=== PATIENT | male | born 1955 | race Caucasian/White ===

== ENCOUNTER 2019-07-13 06:01 | Day surgery (SDC) | payer OTHER ==
[2019-07-12 10:02] LABS: Basophils % 2.3 % (0-1.3); Hematocrit 41.5 % (39.6-49.0); MPV 9.7 fL (7.6-11.3); RBC Red Blood Cell Count 4.63 M/uL (4.33-5.43)
[2019-07-12 10:23] LABS: Potassium 4.3 mmol/L (3.5-5.1)
--- NOTE | 2019-07-12 14:32 | EKG ---
Test Date: 2019-07-12 Test Time: 09:55:21 Production Welding Supervisor: PADMA MEASUREMENT RESULTS: Intervals: Rate: 63 MI: 170 QRSD: 80 QT: 398 QTc: 407 Golden: P: 56 MI: 170 QRS: -4 T: 21 INTERPRETIVE STATEMENTS: Sinus rhythm with sinus arrhythmia with occasional premature ventricular complexes Otherwise normal ECG Compared to ECG 03/06/2007 07:48:06 Ventricular premature complex(es) now present Sinus bradycardia no longer present Electronically Signed On 07-12-19 14:30:06 RECEPTION AGENT by Davy Carnes
[2019-07-13] MEDS ORDERED: Ringers Lactate 1,000 ML IV ONE (06:04)
[2019-07-13] MEDS ORDERED: CLINDAMYCIN 900MG/D5W 900 MG/50 ML IVPB IV ONE (06:04)
[2019-07-13] MEDS ORDERED: BUPIVACA 0.5%/EPI 0.0005%/PF 30 ML VIAL ONE (06:26)
[2019-07-13] MEDS ORDERED: LIDOCAINE 1% MPF 5 ML VIAL ONE (06:50)
[2019-07-13] MEDS ORDERED: MIDAZOLAM HCL 2 MG/2 ML INJ ONE (06:50)
[2019-07-13] MEDS ORDERED: FENTANYL CITR 100 MCG/2 ML ONE (06:50)
[2019-07-13] MEDS ORDERED: PROPOFOL 200 MG/20 ML VIAL IV ONE (06:50)
[2019-07-13] MEDS ORDERED: KETOROLAC 30 MG/ML INJ ONE (07:07)
[2019-07-13] MEDS ORDERED: HYDRALAZINE HCL 20 MG/ML VIAL ONE (07:07)
[2019-07-13] MEDS ORDERED: ONDANSETRON 4 MG/2 ML VIAL ONE (07:08)
[2019-07-13] MEDS ORDERED: NS 0.9% VIAL 10 ML ONE (07:31)
[2019-07-13] MEDS ORDERED: EPHEDRINE SULF 50 MG/ML VIAL ONE (07:31)
--- NOTE | 2019-07-13 07:51 | P.BOP ---
Preoperative diagnosis: left knee pain with mechanical sx Postoperative diagnosis: mmt, grade 3-4 cm, pfj, medial comparment Primary procedure: debridement mmt Estimated blood loss: 10 Anesthesia: General Complications: None Transferred to: Recovery Room Condition: Good
[2019-07-13] MEDS ORDERED: CLINDAMYCIN INJ 900 MG in NA CHLORIDE 0.9% 50 ML IV ONE (08:00)
[2019-07-13 09:59] VITALS: O2SAT 95
[2019-07-13 10:03] VITALS: BP 131/74; TEMP 97.7
--- NOTE | 2019-07-13 19:50 | OP ---
Date of Procedure: 07/13/2019 Surgeon: Wander De Paz MD Preoperative Diagnosis: Left knee pain with mechanical symptoms with some arthritic changes. Postoperative Diagnoses: 1.Displaceable large medial meniscal tear. 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 Procedure: Debridement of medial meniscal tear. Estimated Blood Loss: 10 cc. Complications: There were no complications. Specimens: No pathology specimen sent. Indications For Operation: Mr. Henson is a 64-year-old male, who unfortunately has been having pain in his left knee for approximately 10 months. He has had some pain for that. Unfortunately, his sy mptoms increased, it was increased to such an extent yesterday that he had difficulty with even walki ng. This is not responding to conservative care. He does have an MRI, which demonstrates probable m eniscal tears as well as degenerative changes. We discussed with him that arthroscopic management is not good for degenerative changes. However, it could be of great assistance with mechanical symptom s. These were described to him and he says that he has the symptoms and risks, benefits, and alterna tives were otherwise discussed. Description Of Procedure: The patient was taken to the operating room and placed in the supine posit ion. General anesthesia was obtained by staff. Following this, a well-padded tourniquet was placed on superior left thigh, however it was not used throughout the case. Left lower extremity was then p repped and draped in usual sterile fashion for the procedure. Following this, a standard superior me dial arthroscopy portal was then placed for placement of a drainage portal. Approximately 15 cc of r ather normal-appearing synovial fluid was revealed. Following this, a standard inferior lateral arth roscopic portals was in place. The camera was placed atraumatically with 1 pass, need sequential exa m including the suprapatellar pouch, medial and lateral gutters, medial and lateral compartment, as w ell as notch and patellofemoral joint. Pertinent findings included grade 3, 4 chondromalacia of the patellofemoral joint as well as of the medial femoral compartment. Also seen, was a meniscal tear at the medial side as well as otherwise synovial hypertrophy. A standard inferomedial arthroscopy port al was then established under direct vision using a needle for localization. This allowed good acces s to all of the above areas. After this probe was used, there was found to be a very large displacea ble radial type as well as a horizontal component to the medial meniscal tear. This was then debride d back to a firm hook stable well contoured base using a combination of hand instruments as well as t he shaver. Light debridement was done on the lateral compartment for a few synovial fronds. Also, t he notch was debrided from hypertrophic synovium and some debridement was done along the medial side. The knee was then examined from all the above areas, which failed to demonstrate any further pathol ogy, which was minimal to arthroscopic treatment. After this, the inferior arthroscopy portals were stapled shut. Superior medial arthroscopy portal was used for placement of Marcaine with epinephrine . He was then placed in a well-padded sterile dressing, awakened and taken to recovery room to be in good condition. There were no complications. /NEELA Voice ID: [id number] Report ID: [id number]
== END 2019-07-13 09:46 | disposition home or self-care (01) ==
LOC: OR 06:01
PROVIDERS: ATTEND Orthopaedic Surgery
PROC: 0SBD4ZZ Excision of Left Knee Joint, Percutaneous Endoscopic Approach (ICD-10-PCS; principal; 2019-07-13 07:00)
DX: S83.242A Other tear of medial meniscus, current injury, left knee, initial encounter (principal); M94.262 Chondromalacia, left knee; I10 Essential (primary) hypertension; Z88.0 Allergy status to penicillin; Z86.19 Personal history of other infectious and parasitic diseases
CPT/HCPCS: 93005; 85025; 80048; 36415; 29881; J0360; J2704; J2250; J3010; J7120; J2405

== ENCOUNTER → 2021-02-06 | Day surgery (SDC) | payer OTHER ==
[2021-02-06 09:26] LABS: MPV 10.1 fL (7.6-11.3)
[2021-02-06 09:35] LABS: Protime INR 1.01
[2021-02-06 09:44] LABS: Platelet Estimate ADEQ
--- NOTE | 2021-02-06 13:56 | RAD REPORT ---
EXAM DESCRIPTION: RAD - Lumbar Puncture For Dx - 02/06/2021 1:33 pm CLINICAL HISTORY: POLYNEUROPATHY COMPARISON: None FINDINGS: The risks, benefits and alternatives to the procedure were explained to the patient and in formed consent obtained. The patient was placed prone into the fluoroscopy suite. The skin and subcutaneous tissues were anest hetized with lidocaine. Under fluoroscopic guidance a 22 gauge spinal needle was advanced into the th ecal sac at L2-3 level. The tap was traumatic. Approximately 9 cc of CSF was removed and sent to the laboratory. IMPRESSION: Lumbar puncture
[2021-02-06 14:03] LABS: CSF Glucose 59 mg/dL (40-70)
[2021-02-06 14:54] LABS: Appearance SLT. TURBID (CLEAR); Body Fluid Source CSF; Body Fluid WBC 2 /mm^3; Color of fluid Pink (COLORLESS); Fluid Total Volume 7 ml
[2021-02-06 15:13] VITALS: BP 160/90; TEMP 97.3; O2SAT 97
== END | disposition home or self-care (01) ==
LOC: DS 09:00 → EDSTATUS 10:00
PROVIDERS: ATTEND Specialist
DX: G62.9 Polyneuropathy, unspecified (principal); G61.0 Guillain-Barre syndrome; D47.2 Monoclonal gammopathy
CPT/HCPCS: 36415; 77003; 82945; 84157; 85049; 85610; 85730; 87070; 88108; 89050